=== PATIENT | male | born 1960 | race Caucasian/White ===

== ENCOUNTER → 2020-08-11 | Outpatient (CLI) | payer OTHER ==
[2016-06-08 09:48] VITALS: BP 114/60
[~2020-08-11] MED LIST: CONTRAST GIVEN. MC PRN; DILT120C99 PO; IOHEXOL 240 MG/ML 50ML VIAL. PO ONE; IOHEXOL 300 MG/ML 100ML VIAL. IV ONE; LISI-334 PO; METH-364 PO; METO-239 PO; PRAV20TA2 PO; RIVA20TA2 PO
--- NOTE | 2020-08-11 10:03 | KCIC ---
EXAM: Abdomen and pelvis CT with intravenous contrast. HISTORY: Left lower quadrant pain. TECHNIQUE: Computed tomographic images of the abdomen and pelvis were obtained following the administration of intravenous contrast. Multiplanar reformatting was performed. *One or more of the following individualized dose reduction techniques were utilized for this examination: 1. Automated exposure control. 2. Adjustment of the mA and/or kV according to patient size. 3. Use of iterative reconstruction technique. COMPARISON: None. FINDINGS: Evaluation of the lower thorax demonstrates no infiltrate or pleural effusion. There are calcified granulomas within the right lower lobe. The heart is normal in size. There is hepatic steatosis. No focal hepatic lesion is seen. The gallbladder and pancreas are unremarkable. There is a splenule adjacent to an otherwise unremarkable spleen. The stomach and adrenal glands are unremarkable. The kidneys are unremarkable. There is no appendicitis. There is no bowel obstruction. There is no abnormal bowel wall thickening. There is slight deformation of the bladder base due to an enlarged prostate. The aorta is normal in caliber. There is no lymphadenopathy. No suspicious osseous lesion is seen. IMPRESSION: 1. Hepatic steatosis. 2. Prostatomegaly. 3. No convincing acute abdominal or pelvic finding. Electronically signed by: Mila Irvin MD (08/11/2020 10:00 AM) [id number]
== END ==
LOC: KCIC CT 07:59
PROVIDERS: ATTEND Family Medicine
DX: N40.0 Benign prostatic hyperplasia without lower urinary tract symptoms (principal); K76.0 Fatty (change of) liver, not elsewhere classified
CPT/HCPCS: 74177; Q9966; Q9967